=== PATIENT | female | born 1970 | race African-American/Black ===

== ENCOUNTER 2016-10-17 21:35 | Emergency (ER) | payer MEDICAID, OTHER ==
[~2016-10-17] VITALS: Ht 167.6 cm; Wt 64.4 kg
[2016-10-17] MEDS ORDERED: Cyclobenzaprine 10mg Tab ORAL ONE (22:15)
[2016-10-17] MEDS ORDERED: Ketorolac 30mg Inj IM ONE (22:15)
[2016-10-17 23:56] VITALS: BP 128/89
[2016-10-17] MEDS ORDERED: IBUPROFEN600 MG ORAL (23:58)
[2016-10-17] MEDS ORDERED: CYCLOBENZAPRINE10 MG ORAL (23:58)
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
== END 2016-10-18 00:01 | disposition home or self-care (01) ==
LOC: EMR 21:54
DX: S16.1XXA Strain of muscle, fascia and tendon at neck level, initial encounter (principal); V89.2XXA Person injured in unspecified motor-vehicle accident, traffic, initial encounter; Y92.9 Unspecified place or not applicable; Z88.6 Allergy status to analgesic agent
CPT/HCPCS: 72125; 96372; 99284; J1885